=== PATIENT | male | born 1960 | race Caucasian/White ===

== ENCOUNTER 2019-11-24 15:36 | Emergency (ER) | payer BC ==
[~2019-11-24] VITALS: Ht 177.8 cm; Wt 140.0 kg
[2019-11-24 16:13] LABS: BASOPHILS # (AUTO) 0.1 X10'3 (0-0.2); EOSINOPHILS # (AUTO) 0.3 X10'3 (0-0.9); EOSINOPHILS % (AUTO) 2.9 % (0-6); HEMOGLOBIN 14.5 g/dl (14.0-17.9); LYMPHOCYTES # (AUTO) 2.5 X10'3 (1.1-4.8); LYMPHOCYTES % (AUTO) 24.8 % (21-51); MEAN CORPUSCULAR HEMOGLOBIN 28.6 PG (27.0-31.0); MEAN CORPUSCULAR HGB CONC 34.4 g/dL (33.0-36.5); MEAN CORPUSCULAR VOLUME 83.2 FL (78-98); MONOCYTES # (AUTO) 0.7 X10'3 (0-0.9); NEUTROPHILS # (AUTO) 6.5 X10'3 (1.8-7.7); NEUTROPHILS % (AUTO) 64.3 % (42-75); PLATELET COUNT 287 X10'3 (140-440); RED BLOOD COUNT 5.05 X10'6 (4.70-6.10); RED CELL DISTRIBUTION WIDTH 15.2 % (11.5-14.5); WHITE BLOOD COUNT 10.1 X10'3 (4.5-11.0)
[2019-11-24 16:28] LABS: ALANINE AMINOTRANSFERASE 38 U/L (12-78); ALBUMIN 3.8 G/DL (3.4-5.0); ALBUMIN/GLOBULIN RATIO 1.1 (1.1-1.5); ALKALINE PHOSPHATASE 78 IU/L (46-116); ANION GAP 8 (8-16); ASPARTATE AMINO TRANSFERASE 17 U/L (10-37); BILIRUBIN,TOTAL 0.3 MG/DL (0.1-1.0); BLOOD UREA NITROGEN 17 MG/DL (7-18); BUN/CREATININE RATIO 17.2 (5.4-32.0); CALCIUM 8.9 MG/DL (8.5-10.1); CHLORIDE 104 MMOL/L (99-107); CREATININE 0.99 MG/DL (0.60-1.10); GLUCOSE 116 MG/DL (70-104); POTASSIUM 3.1 MMOL/L (3.5-5.1); SODIUM 142 MMOL/L (135-145); TOTAL CARBON DIOXIDE 29.7 MMOL/L (24-32); TOTAL PROTEIN 7.4 G/DL (6.4-8.2); eGFR 77 ML/MIN
[2019-11-24] MEDS ORDERED: LORazepam 1 MG tablet PO ONE (17:00)
[2019-11-24] MEDS ORDERED: meclizine 12.5mg tablet PO ONE (17:00)
[2019-11-24 17:39] LABS: CLARITY,URINE CLEAR (Clear); COLOR,URINE YELLOW (Yellow); GLUCOSE, URINE NEGATIVE (Neg); KETONES,URINE NEGATIVE (Neg); LEUKOCYTE ESTERASE ,URINE NEGATIVE (Neg); NITRITES, URINE NEGATIVE (Neg); OCCULT BLOOD,URINE LARGE (Neg); PROTEIN,URINE NEGATIVE (Neg); UROBILINOGEN,URINE 0.2 E.U/dL (0.2-1.0)
[2019-11-24 17:44] LABS: UA COLLECTION TYPE NON-SPECIFIED
[2019-11-24 17:46] LABS: RBC,URINE 50-100 /HPF (0-2)
[2019-11-24 17:47] LABS: BACTERIA,URINE FEW /HPF (Neg); MUCUS STRANDS FEW /LPF (Neg); SQUAMOUS EPITHELIAL CELL,UR FEW /LPF (FEW)
--- NOTE | 2019-11-24 18:09 | NUR ---
RELIEVING RN FOR BREAK, PT IS SLEEPING, RESP EVEN AND UNLABORED, FAMILY AT BEDSIDE
[2019-11-24 18:25] VITALS: BP 179/89
== END 2019-11-24 18:24 | disposition home or self-care (01) ==
LOC: ER 15:38
DX: R42 Dizziness and giddiness (principal); I10 Essential (primary) hypertension; E11.9 Type 2 diabetes mellitus without complications; Z88.8 Allergy status to other drugs, medicaments and biological substances
CPT/HCPCS: 36415; 71045; 80053; 81001; 84484; 85025; 87088; 93005; 99284; J8597

== ENCOUNTER 2020-12-09 07:16 | Day surgery (SDC) | payer BC ==
[2020-12-08 14:00] LABS: BASOPHILS # (AUTO) 0.1 X10'3 (0-0.2); BASOPHILS % (AUTO) 0.7 % (0-1); EOSINOPHILS # (AUTO) 0.3 X10'3 (0-0.9); LYMPHOCYTES # (AUTO) 2.5 X10'3 (1.1-4.8); LYMPHOCYTES % (AUTO) 27.8 % (21-51); MEAN CORPUSCULAR HGB CONC 33.4 g/dL (33.0-36.5); MEAN CORPUSCULAR VOLUME 83.9 FL (78-98); MEAN PLATELET VOLUME 9.2 FL (7.4-10.4); MONOCYTES # (AUTO) 0.6 X10'3 (0-0.9); NEUTROPHILS # (AUTO) 5.6 X10'3 (1.8-7.7); NEUTROPHILS % (AUTO) 61.5 % (42-75); PRE OP HEMATOCRIT 39.3 % (42.0-52.0); PRE OP HEMOGLOBIN 13.1 g/dL (14.0-17.9); PRE OP PLATELET COUNT 286 X10'3 (140-440); RED BLOOD COUNT 4.69 X10'6 (4.70-6.10); RED CELL DISTRIBUTION WIDTH 15.9 % (11.5-14.5)
[2020-12-08 14:14] LABS: ALBUMIN 3.7 G/DL (3.4-5.0); ALBUMIN/GLOBULIN RATIO 0.9 (1.1-1.5); ALKALINE PHOSPHATASE 65 IU/L (46-116); BLOOD UREA NITROGEN 21 MG/DL (7-18); CALCIUM 8.9 MG/DL (8.5-10.1); CHLORIDE 105 MMOL/L (99-107); PRE OP ALT 30 U/L (30-65); PRE OP ANION GAP 8 (8-16); PRE OP AST 22 U/L (10-37); PRE OP BILIRUB, TOTAL 0.3 MG/DL (0.0-1.0); PRE OP GLUCOSE 113 MG/DL (70-104); PRE OP SODIUM 145 MMOL/L (135-145); TOTAL PROTEIN 7.6 G/DL (6.4-8.2); eGFR 76 ML/MIN
[~2020-12-09] VITALS: Ht 177.8 cm; Wt 129.3 kg
[~2020-12-09 07:16] MED LIST: ASPI-1264 PO; ATOR20TA66 PO; DUTA0.5C17 PO; FEXO-62 PO; FLO0.4C PO; METF-438 PO; MULT-1085 PO; NIA500ERT PO; OMEG-182 PO; OMEP-50 PO; PIOG30TA71 PO; VALS1TAB76 PO; ceFAZolin inj. 3,000 MG in normal saline 100ml IV soln 100 ML IV ONE; famotidine 20mg tablet PO ONE; ringers solution, lacted 1,000 ML IV SCH
[2020-12-09 09:59] LABS: ISTAT ANION GAP 11 (8-12); ISTAT BUN 19 mg/dL (6-19); ISTAT CL 100 mmol/L (99-107); ISTAT CREATININE 0.8 mg/dL (0.8-1.3); ISTAT GLUCOSE 133 mg/dL (70-104); ISTAT HGB 13.6 g/dl (14.0-18.0); ISTAT Hct 40 %PCV (42-52); ISTAT IONIZED CALCIUM 1.13 mmol/L (1.03-1.32); ISTAT K 2.9 mmol/L (3.5-5.1); ISTAT NA 141 mmol/L (135-145); ISTAT TOTAL CO2 30 mmol/L (24-32); ISTAT eGFR > 90 ML/MIN; POC BUN/CREATININE RATIO 23.8 (5.4-32.0)
[2020-12-09] MEDS ORDERED: potassium Cl 40MEQ/1/2NS 520ml 520 ML IV ONE (10:10)
[2020-12-09] MEDS ORDERED: potassium Cl 20 mEq SR tablet PO ONE (10:10)
== END 2020-12-09 13:30 | disposition home or self-care (01) ==
LOC: PAS 07:16
PROVIDERS: ATTEND Urology
DX: N13.2 Hydronephrosis with renal and ureteral calculous obstruction (principal); Z53.8 Procedure and treatment not carried out for other reasons; N21.1 Calculus in urethra; I10 Essential (primary) hypertension; J45.909 Unspecified asthma, uncomplicated; E11.9 Type 2 diabetes mellitus without complications; K21.9 Gastro-esophageal reflux disease without esophagitis; E66.9 Obesity, unspecified; Z68.41 Body mass index [BMI] 40.0-44.9, adult; Z20.822 Contact with and (suspected) exposure to COVID-19; Z79.899 Other long term (current) drug therapy; Z88.8 Allergy status to other drugs, medicaments and biological substances; Z98.890 Other specified postprocedural states; Z86.73 Personal history of transient ischemic attack (TIA), and cerebral infarction without residual deficits; Z87.891 Personal history of nicotine dependence; Z85.89 Personal history of malignant neoplasm of other organs and systems; Z80.42 Family history of malignant neoplasm of prostate; Z83.3 Family history of diabetes mellitus
CPT/HCPCS: 36415; 71046; 76937; 80047; 80053; 82948; 85025; 87635; 93005; C9803; J0690; J7120

== ENCOUNTER 2021-06-24 12:17 | Emergency (ER) | payer BC ==
[~2021-06-24] VITALS: Ht 177.8 cm; Wt 127.7 kg
[~2021-06-24 12:17] MED LIST changes: -DUTA0.5C17 PO; +DUTA0.5C36 PO; -ceFAZolin inj. 3,000 MG in normal saline 100ml IV soln 100 ML IV ONE; -famotidine 20mg tablet PO ONE; -ringers solution, lacted 1,000 ML IV SCH
[2021-06-24] MEDS ORDERED: ondansetron/PF 4mg/2ml inj IV ONE (13:00)
[2021-06-24] MEDS ORDERED: famotidine/PF 10 mg/ml inj IV ONE (13:00)
[2021-06-24] MEDS ORDERED: normal saline 1000ml 1,000 ML IV ONE ×2 (13:00→14:10)
[2021-06-24] MEDS ORDERED: morphine 4 MG/ML inj SYRINge IV ONE (13:00)
[2021-06-24] MEDS ORDERED: ketorolac tromethamine 15mg/ml inj. IV ONE (13:00)
[2021-06-24] MEDS ORDERED: pantoprazole 40 MG vial IV ONE (13:00)
--- NOTE | 2021-06-24 13:11 | NUR ---
pt amb with steady gait to restroom for bowel movement, now going to CT, family at bedside
[2021-06-24 13:25] LABS: BASOPHILS % (AUTO) 0.3 % (0-1); EOSINOPHILS # (AUTO) 0.2 X10'3 (0-0.9); EOSINOPHILS % (AUTO) 2.3 % (0-6); HEMATOCRIT 38.9 % (42.0-52.0); HEMOGLOBIN 12.8 g/dl (14.0-17.9); LYMPHOCYTES # (AUTO) 1.8 X10'3 (1.1-4.8); MEAN CORPUSCULAR HEMOGLOBIN 27.9 PG (27.0-31.0); MEAN CORPUSCULAR HGB CONC 33.1 g/dL (33.0-36.5); MEAN CORPUSCULAR VOLUME 84.2 FL (78-98); MEAN PLATELET VOLUME 9.3 FL (7.4-10.4); MONOCYTES # (AUTO) 0.4 X10'3 (0-0.9); MONOCYTES % (AUTO) 4.8 % (2-12); NEUTROPHILS # (AUTO) 6.1 X10'3 (1.8-7.7); NEUTROPHILS % (AUTO) 71.6 % (42-75); PLATELET COUNT 266 X10'3 (140-440); RED BLOOD COUNT 4.61 X10'6 (4.70-6.10); RED CELL DISTRIBUTION WIDTH 16.4 % (11.5-14.5); WHITE BLOOD COUNT 8.6 X10'3 (4.5-11.0)
[2021-06-24 13:41] LABS: ALANINE AMINOTRANSFERASE 25 U/L (12-78); ALBUMIN 3.7 G/DL (3.4-5.0); ALKALINE PHOSPHATASE 69 IU/L (46-116); ANION GAP 11 (8-16); ASPARTATE AMINO TRANSFERASE 13 U/L (10-37); BILIRUBIN,TOTAL 0.5 MG/DL (0.1-1.0); BLOOD UREA NITROGEN 26 MG/DL (7-18); BUN/CREATININE RATIO 21.5 (5.4-32.0); CALCIUM 8.7 MG/DL (8.5-10.1); CHLORIDE 106 MMOL/L (99-107); CREATININE 1.21 MG/DL (0.60-1.10); GLUCOSE 177 MG/DL (70-104); POTASSIUM 3.4 MMOL/L (3.5-5.1); SODIUM 145 MMOL/L (135-145); TOTAL CARBON DIOXIDE 27.7 MMOL/L (24-32); TOTAL PROTEIN 7.4 G/DL (6.4-8.2); eGFR 61 ML/MIN
[2021-06-24 13:43] LABS: LIPASE < 50 U/L (73-393); TROPONIN I < 0.04 NG/ML (0.0-0.05)
[2021-06-24] MEDS ORDERED: ONDA4TAB6 PO (13:58)
[2021-06-24] MEDS ORDERED: HYDR-3965 PO (13:58)
[2021-06-24 14:56] LABS: GLUCOSE, URINE NEGATIVE (Neg); KETONES,URINE TRACE mg/dl (Neg); OCCULT BLOOD,URINE MODERATE (Neg); PH,URINE 5.5 (4.8-8.0); PROTEIN,URINE 30 mg/dl (Neg); UROBILINOGEN,URINE 0.2 E.U/dL (0.2-1.0)
[2021-06-24 14:57] LABS: CLARITY,URINE CLEAR (Clear); COLOR,URINE YELLOW (Yellow); LEUKOCYTE ESTERASE ,URINE TRACE (Neg); NITRITES, URINE NEGATIVE (Neg); UA COLLECTION TYPE CLN CATCH MIDSTREAM
[2021-06-24 14:58] LABS: BACTERIA,URINE NONE SEEN /HPF (Neg); MUCUS STRANDS FEW /LPF (Neg); SQUAMOUS EPITHELIAL CELL,UR NONE SEEN /LPF (FEW); WBC,URINE 0-4 /HPF (0-4)
[2021-06-24] MEDS ORDERED: HYDROcodone/acetaminophen 10/325mg tab PO ONE (15:10)
--- NOTE | 2021-06-24 15:20 | NUR ---
2nd liter NS infusing w/o, c/o rt lower abd pain, 06/10
[2021-06-24] MEDS ORDERED: CEPH-585 PO (15:23)
[2021-06-24 15:50] VITALS: BP 185/94
== END 2021-06-24 15:52 | disposition home or self-care (01) ==
LOC: ER 12:17
DX: N21.8 Other lower urinary tract calculus (principal); R10.31 Right lower quadrant pain; R11.10 Vomiting, unspecified; K59.00 Constipation, unspecified; I10 Essential (primary) hypertension; E11.9 Type 2 diabetes mellitus without complications; Z88.8 Allergy status to other drugs, medicaments and biological substances; Z79.82 Long term (current) use of aspirin; Z79.2 Long term (current) use of antibiotics; Z79.899 Other long term (current) drug therapy
CPT/HCPCS: 36415; 74176; 80053; 81001; 83690; 84484; 85025; 87088; 96361; 96374; 96375; 99284; C9113; J1885; J2270; J2405; J3490; J7030

== ENCOUNTER 2021-06-27 21:07 | Emergency (ER) | payer BC ==
[~2021-06-27] VITALS: Ht 177.8 cm; Wt 117.0 kg
[~2021-06-27 21:07] MED LIST changes: +CEPH-585 PO; +HYDR-3965 PO; +ONDA4TAB6 PO
[2021-06-27 21:11] VITALS: BP 148/81
== END 2021-06-27 23:06 | disposition left against medical advice (07) ==
LOC: ER 21:09
DX: R39.198 Other difficulties with micturition (principal); Z53.21 Procedure and treatment not carried out due to patient leaving prior to being seen by health care provider

== ENCOUNTER 2021-07-14 11:49 | Day surgery (SDC) | payer BC ==
[2021-07-07 16:49] LABS: BASOPHILS % (AUTO) 0.4 % (0-1); EOSINOPHILS # (AUTO) 0.3 X10'3 (0-0.9); EOSINOPHILS % (AUTO) 3.2 % (0-6); LYMPHOCYTES # (AUTO) 2.5 X10'3 (1.1-4.8); MEAN CORPUSCULAR HEMOGLOBIN 27.5 PG (27.0-31.0); MEAN CORPUSCULAR HGB CONC 33.3 g/dL (33.0-36.5); MEAN CORPUSCULAR VOLUME 82.4 FL (78-98); MEAN PLATELET VOLUME 9.3 FL (7.4-10.4); MONOCYTES # (AUTO) 0.9 X10'3 (0-0.9); NEUTROPHILS # (AUTO) 5.2 X10'3 (1.8-7.7); NEUTROPHILS % (AUTO) 58.4 % (42-75); PRE OP HEMATOCRIT 38.2 % (42.0-52.0); PRE OP HEMOGLOBIN 12.7 g/dL (14.0-17.9); PRE OP PLATELET COUNT 297 X10'3 (140-440); RED BLOOD COUNT 4.63 X10'6 (4.70-6.10); RED CELL DISTRIBUTION WIDTH 16.1 % (11.5-14.5)
[2021-07-07 17:00] LABS: ALBUMIN 3.7 G/DL (3.4-5.0); ALKALINE PHOSPHATASE 74 IU/L (46-116); BLOOD UREA NITROGEN 15 MG/DL (7-18); BUN/CREATININE RATIO 15.2 (5.4-32.0); CALCIUM 9.1 MG/DL (8.5-10.1); CHLORIDE 105 MMOL/L (99-107); CREATININE 0.99 MG/DL (0.60-1.10); PRE OP ALT 26 U/L (30-65); PRE OP ANION GAP 7 (8-16); PRE OP AST 14 U/L (10-37); PRE OP BILIRUB, TOTAL 0.4 MG/DL (0.0-1.0); PRE OP GLUCOSE 91 MG/DL (70-104); PRE OP SODIUM 145 MMOL/L (135-145); TOTAL CARBON DIOXIDE 33.3 MMOL/L (24-32); TOTAL PROTEIN 7.5 G/DL (6.4-8.2); eGFR 77 ML/MIN
[2021-07-07 17:02] LABS: PRE OP POTASSIUM 3.1 MMOL/L (3.4-5.1)
[2021-07-14] VITALS (10 sets, daily range): BP systolic 164–196; BP diastolic 79–110
[~2021-07-14] VITALS: Ht 177.8 cm; Wt 127.0 kg
[~2021-07-14 11:49] MED LIST changes: -CEPH-585 PO; +FEXO-124 PO; -FEXO-62 PO; -HYDR-3965 PO; -MULT-1085 PO; -ONDA4TAB6 PO; +PIOG15TA8 PO; -PIOG30TA71 PO; +ceFAZolin inj. 3,000 MG in normal saline 100ml IV soln 100 ML IV ONE; +famotidine 20mg tablet PO ONE; +meperidine/PF 25mg/ml syringe IV PRN; +morphine 2 MG/ML inj. syringe IV PRN; +morphine 4 MG/ML inj SYRINge IV PRN; +ondansetron/PF 4mg/2ml inj IV PRN; +proCHLORperazine 10 MG/2 ml inj IV PRN; +ringers solution, lacted 1,000 ML IV SCH
[2021-07-14 12:43] LABS: ISTAT ANION GAP 13 (8-12); ISTAT BUN 20 mg/dL (7-18); ISTAT CL 100 mmol/L (99-107); ISTAT CREATININE 0.8 mg/dL (0.8-1.3); ISTAT GLUCOSE 121 mg/dL (70-105); ISTAT HGB 13.6 g/dl (14.0-18.0); ISTAT Hct 40 %PCV (42-52); ISTAT IONIZED CALCIUM 1.13 mmol/L (1.03-1.32); ISTAT NA 143 mmol/L (135-145); ISTAT TOTAL CO2 30 mmol/L (24-32); ISTAT eGFR > 90 ML/MIN
[2021-07-14] MEDS ORDERED: Potassium Cl inj 40 MEQ in sodium chloride 0.45% 500ml 500 ML IV ONE (13:00)
[2021-07-14] MEDS ORDERED: iohexol 300 MG/1 ML 50ml polymer ONE (13:45)
[2021-07-14] MEDS ORDERED: fentaNYL/PF 50MCG/1 ML 2ML syringe ONE (14:05)
[2021-07-14] MEDS ORDERED: midazolam 1 mg/ML 2ml injection ONE (14:37)
[2021-07-14] MEDS ORDERED: propofol inj 20 ML IV ONE (15:12)
--- NOTE | 2021-07-14 15:22 | NUR ---
Received from OR via [facility], accompanied by Anesthesiologist DR CONTEH and report given by AnesthesiologistLauri BLOOD, DENIES PAIN. Addendum: 07/14/21 at 1546 by Mimi Rowan RN Amended: Links added.
--- NOTE | 2021-07-14 17:02 | NUR ---
PT ABLE TO SAFELY AMBULATE, VOIDED PINK MERLYN URINE X 3. D/C INSTRUCTIONS GIVEN AND GONE OVER W/PT AND PTS WHO VERBALIZED UNDERSTANDING. PT D/CD TO HOME VIA W/C TO PRIVATE VEHICLE W/O INCIDENT. Addendum: 07/14/21 at 1814 by Mimi Rowan RN Amended: Links added.
== END 2021-07-14 17:02 | disposition home or self-care (01) ==
LOC: PAS 11:49
PROVIDERS: ATTEND Urology
DX: N20.1 Calculus of ureter (principal); N32.89 Other specified disorders of bladder; J45.909 Unspecified asthma, uncomplicated; G47.30 Sleep apnea, unspecified; I10 Essential (primary) hypertension; G43.909 Migraine, unspecified, not intractable, without status migrainosus; K21.9 Gastro-esophageal reflux disease without esophagitis; E10.9 Type 1 diabetes mellitus without complications; E66.01 Morbid (severe) obesity due to excess calories; Z68.41 Body mass index [BMI] 40.0-44.9, adult; Z88.8 Allergy status to other drugs, medicaments and biological substances; Z79.899 Other long term (current) drug therapy; Z79.82 Long term (current) use of aspirin; Z98.890 Other specified postprocedural states; Z87.891 Personal history of nicotine dependence; Z87.442 Personal history of urinary calculi; Z86.73 Personal history of transient ischemic attack (TIA), and cerebral infarction without residual deficits; Z20.822 Contact with and (suspected) exposure to COVID-19; Z83.3 Family history of diabetes mellitus; Z80.42 Family history of malignant neoplasm of prostate
CPT/HCPCS: 36415; 52356; 80047; 80053; 82948; 85025; 87635; 93005; C1758; C1769; C2617; C9803; J0690; J2250; J2704; J3010; J3480; J7120; Q9967; Z7506; Z7508; Z7512; 76000; A4402; A4618; A7000

== ENCOUNTER 2022-05-16 21:12 | Emergency (ER) | payer BC ==
[~2022-05-16] VITALS: Ht 177.8 cm; Wt 132.2 kg
[~2022-05-16 21:12] MED LIST changes: -FEXO-124 PO; +FEXO-271 PO; -OMEP-50 PO; +OMEP20CA16 PO; -ceFAZolin inj. 3,000 MG in normal saline 100ml IV soln 100 ML IV ONE; -famotidine 20mg tablet PO ONE; -meperidine/PF 25mg/ml syringe IV PRN; -morphine 2 MG/ML inj. syringe IV PRN; -morphine 4 MG/ML inj SYRINge IV PRN; -ondansetron/PF 4mg/2ml inj IV PRN; -proCHLORperazine 10 MG/2 ml inj IV PRN; -ringers solution, lacted 1,000 ML IV SCH
[2022-05-16 21:41] VITALS: BP 170/100
[2022-05-16 22:58] LABS: BASOPHILS % (AUTO) 0.4 % (0-1); EOSINOPHILS # (AUTO) 0.3 X10'3 (0-0.9); EOSINOPHILS % (AUTO) 2.4 % (0-6); HEMATOCRIT 35.9 % (42.0-52.0); HEMOGLOBIN 11.9 g/dl (14.0-17.9); LYMPHOCYTES # (AUTO) 2.6 X10'3 (1.1-4.8); LYMPHOCYTES % (AUTO) 23.3 % (21-51); MEAN CORPUSCULAR HEMOGLOBIN 25.9 PG (27.0-31.0); MEAN CORPUSCULAR HGB CONC 33.2 g/dL (33.0-36.5); MEAN PLATELET VOLUME 8.9 FL (7.4-10.4); MONOCYTES # (AUTO) 0.8 X10'3 (0-0.9); NEUTROPHILS # (AUTO) 7.6 X10'3 (1.8-7.7); NEUTROPHILS % (AUTO) 66.9 % (42-75); PLATELET COUNT 315 X10'3 (140-440); RED CELL DISTRIBUTION WIDTH 16.8 % (11.5-14.5); WHITE BLOOD COUNT 11.4 X10'3 (4.5-11.0)
[2022-05-16 23:03] LABS: ALANINE AMINOTRANSFERASE 21 U/L (12-78); ALBUMIN 3.3 G/DL (3.4-5.0); ALBUMIN/GLOBULIN RATIO 0.8 (1.1-1.5); ALKALINE PHOSPHATASE 88 IU/L (46-116); ANION GAP 6 (8-16); ASPARTATE AMINO TRANSFERASE 10 U/L (10-37); BILIRUBIN,TOTAL 0.3 MG/DL (0.1-1.0); BLOOD UREA NITROGEN 20 MG/DL (7-18); BUN/CREATININE RATIO 18.3 (5.4-32.0); CALCIUM 9.1 MG/DL (8.5-10.1); CHLORIDE 101 MMOL/L (99-107); CREATININE 1.09 MG/DL (0.60-1.10); GLUCOSE 118 MG/DL (70-104); LIPASE 69 U/L (73-393); POTASSIUM 3.2 MMOL/L (3.5-5.1); SODIUM 140 MMOL/L (135-145); TOTAL CARBON DIOXIDE 33.4 MMOL/L (24-32); TOTAL PROTEIN 7.4 G/DL (6.4-8.2); eGFR 69 ML/MIN
== END 2022-05-17 03:22 | disposition left against medical advice (07) ==
LOC: ER 21:12
DX: R10.32 Left lower quadrant pain (principal); Z53.21 Procedure and treatment not carried out due to patient leaving prior to being seen by health care provider
CPT/HCPCS: 36415; 80053; 83690; 85025

== ENCOUNTER 2025-08-22 09:27 | Emergency (ER) | payer BC, MEDICARE ==
[~2025-08-22] VITALS: Ht 177.8 cm; Wt 127.3 kg
[~2025-08-22 09:27] MED LIST changes: -FEXO-271 PO; +FEXO-404 PO
[2025-08-22 09:47] VITALS: BP 171/71; PULSE 66; RESP 16; O2SAT 95
--- NOTE | 2025-08-22 10:24 | RADIOLOGY REPORT ---
[facility]: DI UNI RIBS WITH PA CHEST INDICATION: RIB PAIN RIGHT SIDE COMPARISON: CHEST,TWO VIEWS on DOS: 12/08/20 TECHNIQUE: Frontal view of the chest and 3 views of the right ribs history FINDINGS: No focal consolidation, pleural effusion or significant pneumothorax. Normal cardiomediastinal silhouette. No displaced right rib fracture. IMPRESSION: No acute cardiopulmonary disease. No displaced right rib fracture.
--- NOTE | 2025-08-22 10:36 | Physician Documentation ---
History of Present Illness General Chief Complaint: Rib pain Stated Complaint: RIB PAIN Time Seen by MD: 10:27 History of Present Illness Initial Comments The patient is a 64-year-old male who rolled over in bed 5:30 this morning, fell out of bed and comes in complaining of right-sided chest wall pain. He is not short of breath. Medication Reconciliation Allergies: Coded Allergies: epinephrine (Verified Allergy, Severe, "SWELLS UP ALL OVER FACE", 08/22/25) Scheduled Aspirin* (Aspirin*), 1 TAB PO DAILY, (Reported) Atorvastatin Calcium (Atorvastatin Calcium), 1 TAB PO DAILY, (Reported) Dutasteride (Dutasteride), 1 CAP PO HS, (Reported) Fexofenadine Hcl* (Lula*), 1 TABLET PO DAILY, (Reported) Metformin HCl (Metformin HCl), 1 TAB PO BID, (Reported) Niacin* (Niaspan*), 1 TAB PO HS, (Reported) Carmi-3S/Dha/Epa/Fish Oil (Fish Oil 1,200 mg Softgel), 1 CAP PO BID, (Reported) Omeprazole (Omeprazole), 1 CAP PO DAILY, (Reported) Pioglitazone Hcl* (Actos*), 30 MG PO DAILY, (Reported) Tamsulosin Hcl (Flomax), 1 TAB PO DAILY, (Reported) Valsartan/Hydrochlorothiazide (Valsartan-Hctz 160-12.5 Mg Tab), 2 TAB PO DAILY, (Reported) Past Medical History Past Medical History: Hypertension, Diabetes Past Surgical History: no surgical history Smoking: Non-Smoker Alcohol Use: None Drug Use: none Lives In: Home Review of Systems ROS Constitutional: Denies chills, fatigue, fever, weight gain or weight loss. HEENT: Denies hearing loss, sinus pressure or visual changes. Respiratory: Denies cough, shortness of breath or wheezing. Cardiovascular: Right-sided chest wall pain Gastrointestinal: Denies abdominal pain, blood in stool, constipation, diarrhea, heartburn, loss of appetite, nausea or vomiting. Genitourinary: Denies painful urination (dysuria), excessive amount of urine (polyuria) or urinary frequency. Metabolic/Endocrine: Denies cold intolerance, heat intolerance, excessive thirst (polydipsia) or excessive hunger (polyphagia). Neurological: Denies dizziness, extremity numbness, extremity weakness, headaches, seizures or tremors. Psychiatric: Denies anxiety or depression. Integumentary: Denies breast discharge, breast lump, hives, mole change(s), rash or skin lesion. Musculoskeletal: Denies back pain, joint pain, joint swelling or neck pain. Hematologic: Denies easily bleeding, easily bruises, lymphedema or issues with blood clots. Immunologic: Denies food allergies or seasonal allergies. Physical Exam Physical Exam Vital Signs: Temperature: 98.0, Source: Temporal, Heart Rate: 66, Respiratory Rate: 16, BP: 171/71, Pulse Oximetry: 95, Weight: 127.300 Physical Exam Physical Exam Vitals and nursing note reviewed. Constitutional: General: Patient is awake, alert, oriented x 4 in no acute distress and well appearing. Speech is clear and lucid. Appearance: Normal appearance. Patient is not ill-appearing, toxic-appearing or diaphoretic. HENT: Head: Normocephalic and atraumatic. Mouth/Throat: Mouth: Mucous membranes are moist. Pharynx: Oropharynx is clear. Eyes: General: No scleral icterus. Extraocular Movements: Extraocular movements intact. Pupils: Pupils are equal, round, and reactive to light. Neck: Supple, no Kernig or Brudzinski sign. Cardiovascular: Rate and Rhythm: Normal rate and regular rhythm. Heart sounds: No murmur heard. Pulmonary: Effort: No respiratory distress. Breath sounds: No wheezing, rhonchi or rales. Abdominal: General: There is no distension. Palpations: There is no fluid wave, hepatomegaly or mass. Tenderness: There is no abdominal tenderness. There is no guarding. Musculoskeletal: General: No swelling or deformity. Skin: Coloration: Skin is not jaundiced. Findings: No erythema or rash. Neurological: Mental Status: Patient is alert. Progress Results/Orders Results/Orders Orders - IVETTE ESCALERA MD With Pa Chest (08/22/25 ) Completed Orders - IVETTE ESCALERA MD With Pa Chest (08/22/25 ) Vital Signs 08/22/25 09:47 Temp 98.0 Pulse 66 Resp 16 B/P (MAP) 171/71 Pulse Ox 95 Medical Decision Making Findings This 64-year-old man fell out of bed this morning and comes in complaining of right-sided chest wall pain. He has not taken anything at home for the pain. Departure Disposition: HOME / SELF CARE / HOMELESS Impression: Primary Impression: Chest wall contusion Condition: Stable Additional Instructions: You have been evaluated for a chest wall contusion. Fortunately, the x-rays do not show any rib fracture or other acute findings. Please take acetaminophen and/or ibuprofen and apply ice to the area. Follow-up with your PCP, as needed. Referrals: NO PRIMARY CARE PROVIDER (PCP) Education Educated: Patient Educated regarding: diagnosis, treatment, prognosis, need for follow up Signature Scribe Signature: . Attestation: . IVETTE ESCALERA MD Aug 22, 2025 10:36
[2025-08-22 10:43] VITALS: TEMP 98
== END 2025-08-22 10:44 | disposition home or self-care (01) ==
LOC: ER 09:27
DX: S20.211A Contusion of right front wall of thorax, initial encounter (principal); I10 Essential (primary) hypertension; E11.9 Type 2 diabetes mellitus without complications; Z88.8 Allergy status to other drugs, medicaments and biological substances; Z79.899 Other long term (current) drug therapy; Z79.82 Long term (current) use of aspirin; W06.XXXA Fall from bed, initial encounter; Y93.89 Activity, other specified; Y92.89 Other specified places as the place of occurrence of the external cause; Y99.8 Other external cause status
CPT/HCPCS: 71101; 99284

== ENCOUNTER 2025-11-18 08:20 | Day surgery (SDC) | payer BC ==
[~2025-11-18] VITALS: Ht 177.8 cm; Wt 127.0 kg
[2025-11-18] VITALS (8 sets, daily range): BP systolic 114–158; BP diastolic 57–75; PULSE 54–66; RESP 13–16; TEMP 97.4; O2SAT 95–100
[~2025-11-18 08:20] MED LIST changes: +AMLO-708 PO; +LIDOcaine 2% Viscous 15ml cup MM ONE; -OMEG-182 PO; -OMEP20CA16 PO; +PANT40TA54 PO; -PIOG15TA8 PO; +SEMA0.258 SQ; +SILD25TA10 PO; +SPIR25TA5 PO; +ringers solution, lacted 1,000 ML IV SCH
--- NOTE | 2025-11-18 09:33 | ELECTROCARDIOGRAPH REPORT ---
[facility] Test Date: 2025-11-18 Test Time: 09:31:48 Pat Name: BRUNO RÍOS Department: [id number] Room: Gender: M Event Marketing Intern: SUSIE : 1960 Requested By: DULCE MARIA ROY Order Number: [id number] Reading MD: Dr. Heidi Shankar Measurements Intervals [place] Rate: 54 P: 45 LA: 158 QRS: -39 QRSD: 120 T: 39 QT: 446 QTc: 423 Interpretive Statements Sinus rhythm Nonspecific IVCD with LAD Electronically Signed On 11-18-2025 15:04:[address] Heidi Shankar Please click the below link to view image of tracing.
[2025-11-18] MEDS ORDERED: fentaNYL/PF 50MCG/1 ML 2ML syringe ONE (11:01)
[2025-11-18] MEDS ORDERED: midazolam 1 mg/ML 2ml injection ONE (11:01)
[2025-11-18] MEDS ORDERED: propofol inj 20 ML IV ONE (11:16)
== END 2025-11-18 12:18 | disposition home or self-care (01) ==
LOC: PAS 08:20
PROVIDERS: ATTEND Internal Medicine Gastroenterology
DX: R10.13 Epigastric pain (principal); K31.7 Polyp of stomach and duodenum; K31.89 Other diseases of stomach and duodenum; E11.9 Type 2 diabetes mellitus without complications; E78.5 Hyperlipidemia, unspecified; E66.9 Obesity, unspecified; G47.33 Obstructive sleep apnea (adult) (pediatric); G43.909 Migraine, unspecified, not intractable, without status migrainosus; I10 Essential (primary) hypertension; R10.33 Periumbilical pain; Z68.41 Body mass index [BMI] 40.0-44.9, adult; Z98.890 Other specified postprocedural states; Z87.442 Personal history of urinary calculi; Z86.73 Personal history of transient ischemic attack (TIA), and cerebral infarction without residual deficits; Z79.84 Long term (current) use of oral hypoglycemic drugs
CPT/HCPCS: 43239; 82948; 93005; J2250; J2704; J3010; J7120; Z7512; A4615; A4620